=== PATIENT | male | born 1970 | race Caucasian/White ===

== ENCOUNTER 2020-12-13 13:14 | Emergency (ER) | payer OTHER ==
[2020-12-13 15:36] LABS: HEMOGLOBIN 17.1 gm/dl (14.0-17.5); RED BLOOD COUNT 5.38 M/UL (4.20-5.50); WHITE BLOOD COUNT 4.9 K/UL (4.5-11.0)
[2020-12-13 16:13] LABS: BUN/CREATININE RATIO 22 (0-10)
[2020-12-13] MEDS ORDERED: ZITHROMAX500 MG PO (20:02)
[2020-12-13] MEDS ORDERED: ASPIRIN 325MG325 MG PO (20:02)
[2020-12-13] MEDS ORDERED: MEDROL DOSEPAK 24 MG PO (20:02)
== END 2020-12-13 20:33 | disposition home or self-care (01) ==
LOC: ER1 13:14
PROVIDERS: Physician Assistant
DX: U07.1 COVID-19 (principal); R09.02 Hypoxemia; I10 Essential (primary) hypertension; Z91.013 Allergy to seafood
CPT/HCPCS: 36600; 71045; 80053; 82550; 82553; 82803; 83874; 84484; 85025; 85379; 93005; 96374; 99285; J1100; M0239